=== PATIENT | female | born 1975 | race Caucasian/White ===

== ENCOUNTER 2022-12-28 16:45 | Emergency (ER) | payer SELFPAY ==
[2022-12-28] VITALS (16 sets, daily range): BP systolic 132–160; BP diastolic 76–96; PULSE 76–92; RESP 26; TEMP 36.6; O2SAT 94–100; BMI 35.3
--- NOTE | 2022-12-28 17:29 | ED.GENADULT ---
HPI - General Adult General Date Seen: 12/28/22 Chief complaint: Dizziness/Vertigo Stated complaint: Difficulty breathing Time Seen by Provider: 12/28/22 17:11 Source: patient, family and full time staff interpreter Mode of arrival: ambulatory Limitations: no limitations History of Present Illness HPI narrative: Patient is a 47-year-old woman who is here for evaluation of difficulty breathing. She says since this morning she has been intermittently feeling like she can not catch her breath. She has sometimes had some pain with deep breath although not consistently. She has not had other chest pain, denies exertional chest pain. She has not had fever cough. No unusual leg pain or swelling. She has also noted a mild headache in the back of her head. She has felt dizzy. Her says that she has complained of some sharp pains in her low back over the past few days. She also says since last night she has been urinating more frequently than usual. She has a history of thyroid disease and takes medication for that. She says she has been told over the past year that her blood pressure is high but she does not take medication for that. She also says she has been told the past that she may have diabetes but is not on medication for that. She denies previous history of anxiety. History is obtained with the assistance of a full time staff interpreter. She does not smoke. She denies significant alcohol use. She does have a history of reflux, takes omeprazole, 2 tabs daily. Her says that she is supposed to see a child welfare worker but that appointment has not yet made. She gets her care in [place] but she does not remember her doctor's name. Related Data Allergies Allergy/AdvReac Type Severity Reaction Status Date / Time latex Allergy Verified 12/28/22 17:03 Review of Systems Status of ROS: Reports: 10 or more systems reviewed and unremarkable except as noted in History and below [facility] Social History Smoking Status: Never smoker Do you use any of these nicotine containing products: None Second hand tobacco smoke exposure: No How often do you have a drink containing alcohol: never How often do you have six or more drinks on one occasion: Never AUDIT-C Alcohol total score: 0 Non-prescribed substance use: denies use service: No Exam Narrative: Exam Narrative: Vital signs as noted above. In general, an alert, tearful woman, tachypneic. Head: Normocephalic, atraumatic. Eyes: Pupils are equal reactive. Extraocular movements are full. Conjunctivae are normal. ENT: Mucous membranes are moist. Throat is normal. Neck: Supple without lymphadenopathy. Heart: Regular rate and rhythm. No murmur or rub. Lungs: Clear bilaterally. No increased work of breathing, crackles or wheezes. Abdomen: Soft and nontender. No organomegaly. Extremities: Well perfused. No edema. No calf tenderness. Pulses intact. Neurologic: Patient is alert and oriented to person and place. Speech is fluent. Face is symmetric. Moves all extremities equally. Affect: Tearful, anxious. Skin: Warm and dry. Well perfused. Const: Vital Signs, click to edit/add: Vital Signs - 24 hr 12/28/22 16:51 12/28/22 18:14 12/28/22 18:15 Temperature 97.9 F Pulse Rate 83 82 Pulse Rate [Pulse Oximeter] 76 Respiratory Rate 26 H Blood Pressure 156/76 H Blood Pressure [Ri ght Upper Arm] 160/96 H Pulse Oximetry 100 99 99 Oxygen Delivery Me thod Room Air Room Air 12/28/22 18:16 12/28/22 18:30 12/28/22 18:32 Temperature Pulse Rate 78 82 82 Pulse Rate [Pulse Oximeter] Respiratory Rate Blood Pressure 132/85 Blood Pressure [Ri ght Upper Arm] Pulse Oximetry 99 94 99 Oxygen Delivery Me thod 12/28/22 18:33 12/28/22 18:51 12/28/22 19:00 Temperature Pulse Rate 78 78 82 Pulse Rate [Pulse Oximeter] Respiratory Rate Blood Pressure Blood Pressure [Ri ght Upper Arm] Pulse Oximetry 98 100 94 Oxygen Delivery Me thod 12/28/22 19:01 12/28/22 19:10 12/28/22 19:15 Temperature Pulse Rate 84 89 82 Pulse Rate [Pulse Oximeter] Respiratory Rate Blood Pressure 149/92 H 150/90 H Blood Pressure [Ri ght Upper Arm] Pulse Oximetry 94 99 96 Oxygen Delivery Me thod 12/28/22 19:30 12/28/22 19:31 12/28/22 19:45 Temperature Pulse Rate 83 83 82 Pulse Rate [Pulse Oximeter] Respiratory Rate Blood Pressure 144/86 H Blood Pressure [Ri ght Upper Arm] Pulse Oximetry 95 98 96 Oxygen Delivery Me thod 12/28/22 20:00 Temperature Pulse Rate 92 Pulse Rate [Pulse Oximeter] Respiratory Rate Blood Pressure Blood Pressure [[facility] Upper Arm] Pulse Oximetry 99 Oxygen Delivery Me thod Documenting provider has reviewed patient's vital signs: yes Course Course Hospital Course: EKG is ordered and pending. We will go ahead and do a workup for cardiac or pulmonary causes, rule out anemia, electrolyte abnormalities, PE, acute coronary syndrome. I do not hear any evidence of bronchospasm. Lungs are clear, O2 sats are 100%. She does seem fairly anxious to me. I am going to give her a little Toradol for her headache, 0.5 mg of Ativan see if she feels little bit better. She is mildly tachypneic, but my sense is that this is more likely related to anxiety rather than a physiologic cause of tachypnea. She seemed to calm down and her breathing regulated as we talked. Labs are notable for a normal white blood cell count and hemoglobin. D-dimer was 0.35. My suspicion for PE is low and I think this is effectively ruled out by the negative D-dimer. Metabolic panel is normal, BUN is 16, creatinine is 0.6, electrolytes normal. Blood sugar was 139. Urinalysis was negative, no evidence of urinary tract infection and she does not have glucose in her urine. She has mild elevations in her transaminases, AST of 50 and ALT of 61 of unknown significance. Bilirubin is normal as is her alk-phos. CRP is less than 0.5. BNP was less than 20. She had a chest x-ray which by my review was negative, final radiology read was negative as well. There is no evidence of congestive heart failure, pleural effusion, pneumothorax, or infiltrate to explain her shortness of breath. Notably however her TSH was less than 0.015 and her free T4 was elevated at 2.23. She says that she is continuing to take her regular dose of Synthroid. I have asked her to hold her Synthroid for now and to follow up with her primary doctor this week. It may be that hyperthyroidism is the cause of her symptoms today. She is feeling better at this time. She looks much more comfortable, she is no longer tearful, breathing is improved. COVID was negative. I think it is reasonable to discharge her home with close outpatient follow-up. If she is feeling worse rather than stable to improve she should return for re-evaluation. Vital Signs Vital signs: Initial Vital Signs Temperature 97.9 F 12/28/22 16:51 Temperature Source Temporal Artery Scan 12/28/22 16:51 Pulse Rate 76 12/28/22 16:51 Pulse Rhythm 12/28/22 16:51 Respiratory Rate 26 H 12/28/22 16:51 Blood Pressure 160/96 H 12/28/22 16:51 Blood Pressure Mean 117 12/28/22 16:51 Blood Pressure Position Supine 12/28/22 16:51 Pulse Oximetry 100 12/28/22 16:51 Oxygen Delivery Method 12/28/22 16:51 Vital Signs Temperature 97.9 F 12/28/22 16:51 Pulse Rate 76 12/28/22 16:51 Respiratory Rate 26 H 12/28/22 16:51 Blood Pressure 160/96 H 12/28/22 16:51 Pulse Oximetry 100 12/28/22 16:51 Oxygen Delivery Method 12/28/22 16:51 Temperature 97.9 F 12/28/22 16:51 Pulse Rate 92 12/28/22 20:00 Respiratory Rate 26 H 12/28/22 16:51 Blood Pressure 144/86 H 12/28/22 19:31 Pulse Oximetry 99 12/28/22 20:00 Oxygen Delivery Method 12/28/22 18:14 Medical Decision Making Lab Data Labs: Lab Results 12/28/22 12/28/22 12/28/22 Range/Units 17:40 17:40 17:40 WBC 8.66 (4.50-11.00) K/uL RBC 4.54 (4.00-5.20) m/uL Hgb 14.2 (12.0-16.0) gm/dL Hct 42.0 (33.0-51.0) % MCV 93 (80-100) fL MCH 31 (26-34) pg MCHC 34 (32-36) gm/dL RDW Coeff of Dipak 11.4 L (11.5-15.5) % Plt Count 296 (140-440) K/uL Neut % (Auto) 73.2 H (42.0-72.0) % Lymph % (Auto) 20.0 (20-44) % Canyon % (Auto) 5.3 (0.0-11.0) % Eos % (Auto) 0.7 (0.0-7.0) % Baso % (Auto) 0.6 (0.0-3.0) % Neut # (Auto) 6.30 (1.7-7.0) K/uL Lymph # (Auto) 1.73 (0.90-2.90) K/uL Canyon # (Auto) 0.50 (0.00-0.90) K/UL Eos # (Auto) 0.06 (0.00-0.50) K/uL Baso # (Auto) 0.05 (0.00-0.30) K/uL D-Dimer Quant (PE/DVT) 0.35 (0.00-0.50) ug/ml Sodium 139 (135-149) mmol/L Potassium 3.9 (3.6-5.1) mmol/L Chloride 107 (96-114) mmol/L Carbon Dioxide 23 (20-32) mmol/L BUN 16 (5-24) mg/dL Creatinine 0.6 (0.5-1.5) mg/dL Estimated Creat Clear 91.68 Estimated GFR 111 ml/min Glucose 139 H (60-115) mg/dL Calcium 9.6 (8.4-10.6) mg/dL Total Bilirubin 0.7 (0.1-1.5) mg/dL Direct Bilirubin 0.1 (0.0-0.5) mg/dL AST 50 H (12-35) U/L ALT 61 H (4-35) U/L Alkaline Phosphatase 106 (40-150) U/L C-Reactive Protein < 0.5 L (0.5-1.0) mg/dL NT-Pro-B Natriuret Pep < 20 pg/mL Total Protein 8.5 H (6.0-8.3) g/dL Albumin 4.7 (3.3-5.0) g/dL TSH (0.270-4.200) uIU/mL Free T4 (0.70-1.85) ng/dL Urine Color (Yellow) Urine Appearance (Clear) Urine pH (5.0-8.5) Ur Specific [place] (1.000-1.030) Urine Protein (Negative) Urine Glucose (UA) (Negative) Urine Ketones (Negative) Urine Blood (Negative) Urine Nitrite (Negative) Urine Bilirubin (Negative) Urine Urobilinogen (0.2-1.0) Ur Leukocyte Esterase (Negative) Urine RBC (0-2) Urine WBC (0-5) Ur Squamous Epith Cells (None-Few) Urine Bacteria (None) SARS-CoV-2 (PCR) (Negative) POC Troponin I (0.01-0.04) ng/ml 12/28/22 12/28/22 12/28/22 Range/Units 17:40 17:40 17:40 WBC (4.50-11.00) K/uL RBC (4.00-5.20) m/uL Hgb (12.0-16.0) gm/dL Hct (33.0-51.0) % MCV (80-100) fL MCH (26-34) pg MCHC (32-36) gm/dL RDW Coeff of Dipak (11.5-15.5) % Plt Count (140-440) K/uL Neut % (Auto) (42.0-72.0) % Lymph % (Auto) (20-44) % Canyon % (Auto) (0.0-11.0) % Eos % (Auto) (0.0-7.0) % Baso % (Auto) (0.0-3.0) % Neut # (Auto) (1.7-7.0) K/uL Lymph # (Auto) (0.90-2.90) K/uL Canyon # (Auto) (0.00-0.90) K/UL Eos # (Auto) (0.00-0.50) K/uL Baso # (Auto) (0.00-0.30) K/uL D-Dimer Quant (PE/DVT) (0.00-0.50) ug/ml Sodium (135-149) mmol/L Potassium (3.6-5.1) mmol/L Chloride (96-114) mmol/L Carbon Dioxide (20-32) mmol/L BUN (5-24) mg/dL Creatinine (0.5-1.5) mg/dL Estimated Creat Clear Estimated GFR ml/min Glucose (60-115) mg/dL Calcium (8.4-10.6) mg/dL Total Bilirubin (0.1-1.5) mg/dL Direct Bilirubin (0.0-0.5) mg/dL AST (12-35) U/L ALT (4-35) U/L Alkaline Phosphatase (40-150) U/L C-Reactive Protein (0.5-1.0) mg/dL NT-Pro-B Natriuret Pep pg/mL Total Protein (6.0-8.3) g/dL Albumin (3.3-5.0) g/dL TSH < 0.015 L (0.270-4.200) uIU/mL Free T4 (0.70-1.85) ng/dL Urine Color (Yellow) Urine Appearance (Clear) Urine pH (5.0-8.5) Ur Specific [place] (1.000-1.030) Urine Protein (Negative) Urine Glucose (UA) (Negative) Urine Ketones (Negative) Urine Blood (Negative) Urine Nitrite (Negative) Urine Bilirubin (Negative) Urine Urobilinogen (0.2-1.0) Ur Leukocyte Esterase (Negative) Urine RBC (0-2) Urine WBC (0-5) Ur Squamous Epith Cells (None-Few) Urine Bacteria (None) SARS-CoV-2 (PCR) Negative SARS-CoV-2 (Negative) POC Troponin I 0.00 L (0.01-0.04) ng/ml 12/28/22 12/28/22 Range/Units 17:40 18:11 WBC (4.50-11.00) K/uL RBC (4.00-5.20) m/uL Hgb (12.0-16.0) gm/dL Hct (33.0-51.0) % MCV (80-100) fL MCH (26-34) pg MCHC (32-36) gm/dL RDW Coeff of Dipak (11.5-15.5) % Plt Count (140-440) K/uL Neut % (Auto) (42.0-72.0) % Lymph % (Auto) (20-44) % Canyon % (Auto) (0.0-11.0) % Eos % (Auto) (0.0-7.0) % Baso % (Auto) (0.0-3.0) % Neut # (Auto) (1.7-7.0) K/uL Lymph # (Auto) (0.90-2.90) K/uL [place] # (Auto) (0.00-0.90) K/UL Eos # (Auto) (0.00-0.50) K/uL Baso # (Auto) (0.00-0.30) K/uL D-Dimer Quant (PE/DVT) (0.00-0.50) ug/ml Sodium (135-149) mmol/L Potassium (3.6-5.1) mmol/L Chloride (96-114) mmol/L Carbon Dioxide (20-32) mmol/L BUN (5-24) mg/dL Creatinine (0.5-1.5) mg/dL Estimated Creat Clear Estimated GFR ml/min Glucose (60-115) mg/dL Calcium (8.4-10.6) mg/dL Total Bilirubin (0.1-1.5) mg/dL Direct Bilirubin (0.0-0.5) mg/dL AST (12-35) U/L ALT (4-35) U/L Alkaline Phosphatase (40-150) U/L C-Reactive Protein (0.5-1.0) mg/dL NT-Pro-B Natriuret Pep pg/mL Total Protein (6.0-8.3) g/dL Albumin (3.3-5.0) g/dL TSH (0.270-4.200) uIU/mL Free T4 2.23 H (0.70-1.85) ng/dL Urine Color Yellow (Yellow) Urine Appearance Slightly Cloudy A (Clear) Urine pH 6.0 (5.0-8.5) Ur Specific [place] >= 1.030 (1.000-1.030) Urine Protein Negative (Negative) Urine Glucose (UA) Negative (Negative) Urine Ketones 1+ A (Negative) Urine Blood 1+ A (Negative) Urine Nitrite Negative (Negative) Urine Bilirubin Negative (Negative) Urine Urobilinogen 0.2 (0.2-1.0) Ur Leukocyte Esterase Trace A (Negative) Urine RBC 5-10 A (0-2) Urine WBC 0-2 (0-5) Ur Squamous Epith Cells None (None-Few) Urine Bacteria None (None) SARS-CoV-2 (PCR) (Negative) POC Troponin I (0.01-0.04) ng/ml Discharge Plan Discharge Clinical Impression: Hyperthyroidism Patient Disposition: Home, Self-Care Condition: Improved Instructions: Hyperthyroidism (ED) Additional Instructions: Do not take your thyroid medicine for now. Call your clinic doctor tomorrow to arrange for follow-up this week. You will need to have your thyroid level rechecked and your dosage adjusted. If you have worsening symptoms, return for re-evaluation. No tome lucia medicamento para la tiroides por ahora. Llame a lucia m?dico de la cl?oleksandr ma?teressa para organizar el seguimiento esta semana. Tendr? que volver a revisar lucia nivel de tiroides y ajustar lucia dosis. Si tiene s?ntomas que empeoran, regrese para reji nueva evaluaci?n. Follow Up/Referrals: Dora Neal DO [Staff Physician] - Stand Alone Forms: [facility]
[2022-12-28 17:53] LABS: Basophils Absolute Auto 0.05 K/uL (0.00-0.30); Basophils Percent Auto 0.6 % (0.0-3.0); Eosinophils Absolute Auto 0.06 K/uL (0.00-0.50); Eosinophils Percent Auto 0.7 % (0.0-7.0); Hemoglobin* 14.2 gm/dL (12.0-16.0); Immature Granulocytes Abs Auto 0.02 K/uL (0.00-0.30); Immature Granulocytes Pct Auto 0.2 %; Lymphocytes Absolute Auto 1.73 K/uL (0.90-2.90); Mean Corpuscular HGB Conc 34 gm/dL (32-36); Mean Corpuscular Hemoglobin 31 pg (26-34); Mean Corpuscular Volume 93 fL (80-100); Monocytes Percent Auto 5.3 % (0.0-11.0); Neutrophils Percent Auto 73.2 % (42.0-72.0); Platelet Count* 296 K/uL (140-440); RDW Coefficient of Variation % 11.4 % (11.5-15.5); Red Blood Count 4.54 m/uL (4.00-5.20); White Blood Count* 8.66 K/uL (4.50-11.00)
[2022-12-28 17:54] LABS: Slide Review Reflex No
[2022-12-28] MEDS: KETOROLAC 15 MG/ML inj IVP (17:54)
[2022-12-28] MEDS: 0.9 % SODIUM CHLORIDE 500 ML 500 ML IV (17:54)
[2022-12-28] MEDS: LORazepam 2 MG/ML inj 0.5 MG IVP (17:54)
[2022-12-28 18:06] LABS: Albumin* 4.7 g/dL (3.3-5.0); Chloride* 107 mmol/L (96-114); Sodium* 139 mmol/L (135-149)
[2022-12-28 18:07] LABS: Potassium* 3.9 mmol/L (3.6-5.1)
[2022-12-28 18:09] LABS: Alanine Aminotransferase* 61 U/L (4-35); Alkaline Phosphatase* 106 U/L (40-150); Aspartate Amino Transferase* 50 U/L (12-35); Bilirubin Direct* 0.1 mg/dL (0.0-0.5); Bilirubin Total* 0.7 mg/dL (0.1-1.5); Blood Urea Nitrogen* 16 mg/dL (5-24); Carbon Dioxide* 23 mmol/L (20-32); Creatinine* 0.6 mg/dL (0.5-1.5); D Dimer Quantitative* 0.35 ug/ml (0.00-0.50); Est. Creatinine Clearance* 91.68; Estimated Glomerular Filt Rate 111 ml/min; Total Protein* 8.5 g/dL (6.0-8.3)
[2022-12-28 18:10] LABS: Calcium* 9.6 mg/dL (8.4-10.6); Glucose* 139 mg/dL (60-115)
[2022-12-28 18:19] LABS: Appearance Urine Slightly Cloudy (Clear); Bilirubin Urine Negative (Negative); Blood Urine 1+ (Negative); Color Urine Yellow (Yellow); Glucose Urine Negative (Negative); Ketones Urine 1+ (Negative); Leukocyte Esterase Urine Trace (Negative); Nitrite Urine Negative (Negative); Protein Urine Negative (Negative); Specific Gravity Urine >= 1.030 (1.000-1.030); Urobilinogen Urine 0.2 (0.2-1.0)
[2022-12-28 18:19] LABS: C Reactive Protein* < 0.5 mg/dL (0.5-1.0); NT Pro B Type NatriureticPept* < 20 pg/mL
--- NOTE | 2022-12-28 18:32 | CRLHL7_ITS ---
For Patients: As a result of the Century Cures Act, medical imaging exams and procedure reports are released immediately into your electronic medical record. You may view this report before your referring provider. If you have questions, please contact your health care provider. Indication: Difficulty breathing Comparison: None available. Technique: PA and lateral views of the chest Findings: There is no focal consolidation, effusion, or pneumothorax. The cardiomediastinal silhouette is within normal limits. The bony thorax is grossly intact. Impression: No acute cardiopulmonary abnormality. Dictated by Marcial Keyes MD @ 12/28/2022 7:15:18 PM (Electronically Signed)
[2022-12-28 18:39] LABS: SARS PCR* Negative SARS-CoV-2 (Negative)
[2022-12-28 18:41] LABS: WBC Urine 0-2 (0-5)
[2022-12-28 18:58] LABS: TSH With Reflex to FT4* < 0.015 uIU/mL (0.270-4.200)
[2022-12-28 19:25] LABS: Free T4 Free Thyroxine* 2.23 ng/dL (0.70-1.85)
[2022-12-28] MEDS: ONDANSETRON 2 MG/ML inj 4 MG IVP (19:57)
== END 2022-12-28 20:03 | disposition home or self-care (01) ==
PROVIDERS: Emergency Provider Emergency Medicine
DX: E03.9 Hypothyroidism, unspecified (principal)
CPT/HCPCS: 36415; 71046; 80048; 80076; 81001; 83880; 84439; 84443; 84484; 85025; 85379; 86140; 87635; 93005; 96374; 96375; 99284; J1885; J2060; J2405; J7120

== ENCOUNTER 2023-07-27 08:26 | Outpatient (CLI) | payer SELFPAY | END 2023-07-27 08:27 | disposition home or self-care (01) | LOC: NFLDREF 07-29 00:52 | PROVIDERS: Visit Provider Otolaryngology | DX: G25.81 Restless legs syndrome (principal) | CPT/HCPCS: 82728 ==